=== PATIENT | female | born 1990 | race Asian ===

== ENCOUNTER 2021-01-17 23:07 | Outpatient (CLI) | payer MEDICAID | END 2021-01-17 23:08 | disposition critical access hospital (66) | LOC: EMS 23:07 | DX: R11.2 Nausea with vomiting, unspecified (principal) | CPT/HCPCS: A0425; A0427 ==

== ENCOUNTER 2021-01-17 23:18 | Emergency (ER) | payer MEDICAID ==
[2021-01-17] MEDS ORDERED: PIPERACILLIN/TAZOBACTAM 4.5 GM in SODIUM CHLORIDE 0.9% MINIBAG 100 ML IV STA (23:22)
[2021-01-17] MEDS ORDERED: SODIUM CHLORIDE 0.9% 500 ML IV STA (23:23)
[2021-01-17] MEDS ORDERED: ONDANSETRON 4 MG/2 ML VIAL IVP STA (23:23)
[2021-01-17] MEDS ORDERED: ACETAMINOPHEN 650 MG SUPP PR STA (23:23)
--- NOTE | 2021-01-17 23:26 | ED Physician Documentation ---
History of Present Illness - Stated complaint Stated Complaint: FEVER, BODY ACHES, VOMITING - History obtained from History obtained from: Patient - Additonal information Additional information: 30yF with pmh fentanyl abuse currently in rehab since wednesday p/w nbnb n/v X 2 days since starting suboxone therapy. COWS 12, 13, 16, 15 today. also with elevated forehead temp tmax 100.8 today. denies diarrhea, abd pain, urinary sx. Review of Systems Ten Systems: 10 systems reviewed and negative Constitutional: reports: Chills, Myalgias, Fatigue GI: reports: Nausea, Vomiting. denies: Abdominal Pain, Diarrhea : denies: Dysuria PD PAST MEDICAL HISTORY - Present Medications Home Medications: Ambulatory Orders Medication Instructions Recorded Confirmed Buprenorphine HCl/Naloxone HCl 1 film PO BID 01/17/21 01/17/21 [Buprenorphine-Nalox 8-2Mg Film] Promethazine [Phenergan] 12.5 mg PO TID 01/17/21 01/17/21 cloNIDine [Catapres] 0.1 mg PO DAILY 01/17/21 01/17/21 hydrOXYzine HCL [Hydroxyzine HCl] 50 mg PO DAILY 01/17/21 01/17/21 methocarbamoL [Methocarbamol] 750 mg PO DAILY 01/17/21 01/17/21 traZODone [Desyrel] 50 mg PO DAILY 01/17/21 01/17/21 - Allergies Allergies/Adverse Reactions: Allergies Allergy/AdvReac Type Severity Reaction Status Date / Time No Known Drug Allergies Allergy Verified 01/17/21 23:22 PD ED PE NORMAL - Vitals Vital signs reviewed: Yes - General General: Alert and oriented X 3, No acute distress, Well developed/nourished, Other (uncomfortable appearing) - HEENT HEENT: Atraumatic, PERRL (pupils dilated, reactive to light), EOMI, Moist mucous membranes, Pharynx benign - Neck Neck: Supple, no meningeal sign - Cardiac Cardiac: RRR - Respiratory Respiratory: No respiratory distress, Clear bilaterally - Abdomen Abdomen: Non tender, Non distended - Derm Derm: Normal color, Warm and dry - Extremities Extremities: No deformity - Neuro Neuro: Alert and oriented X 3 - Psych Psych: Normal mood, Normal affect Results - Vitals Vitals: Vital Signs - 24 hr 01/17/21 01/17/21 01/18/21 23:22 23:25 00:37 Temperature 37.7 C 37.7 C 37.3 C Heart Rate 97 97 76 Respiratory 18 18 16 Rate Blood Pressure 134/99 H 134/99 H 137/80 H O2 Saturation 97 98 99 Oxygen O2 Source Room air - Labs Labs: Laboratory Tests 01/17/21 01/17/21 01/18/21 23:57 23:57 00:28 WBC 15.1 H RBC 5.88 H Hgb 14.0 Hct 44.5 MCV 75.7 L MCH 23.8 L MCHC 31.5 L RDW 18.9 H Plt Count 430 MPV 9.0 Neut # (Auto) 11.9 H Lymph # (Auto) 1.6 [place] # (Auto) 1.5 H Eos # (Auto) 0.0 Baso # (Auto) 0.1 Absolute Nucleated RBC 0.00 Nucleated RBC % 0.0 Sodium 145 Potassium 3.1 L Chloride 102 Carbon Dioxide 26 Anion Gap 17.0 H BUN 22 H Creatinine 0.7 Estimated GFR (MDRD) 97 Glucose 129 H Calcium 9.2 Total Bilirubin 1.0 AST 16 ALT 20 Alkaline Phosphatase 50 Total Protein 8.6 H Albumin 4.9 Globulin 3.7 Albumin/Globulin Ratio 1.3 Lipase 38 Urine Color DARK YELLOW Urine Clarity CLEAR Urine pH 5.5 Ur Specific [place] >=1.030 H Urine Protein 100 H Urine Glucose (UA) NEGATIVE Urine Ketones 40 H Urine Occult Blood TRACE-INTA Urine Nitrite NEGATIVE Urine Bilirubin NEGATIVE Urine Urobilinogen 0.2 (NORMAL) Ur Leukocyte Esterase NEGATIVE Urine RBC 0-5 Urine WBC 0-3 Ur Squamous Epith Cells MANY Squamous H Urine Bacteria Few Urine Mucus Marked Strands Urine Culture Comments NOT INDICATED PD MEDICAL DECISION MAKING - ED course ED course: 30-year-old woman presented with symptoms concerning for withdrawal. Less likely infectious etiology given patient is not having diarrhea, had no fever here, and symptoms coincide with withdrawal from fentanyl. symptoms controlled in the emergency department and she is feeling better. Plan to dc back to rehab with strict return precautions. Departure - Departure Disposition: 01 Home, Self Care Clinical Impression: Nausea and vomiting, Tremors of nervous system Condition: Good Instructions: Diet Clear Liquid Dc Comments: You are seen in the emergency department for nausea and vomiting. This is most likely related to withdrawal. Please return to the emergency department if you have diarrhea, abdominal pain, fever >100.4 by oral, rectal or axillary thermometer, new or worsening symptoms that are not consistent with withdrawal. Hope you feel better!
[2021-01-17] MEDS ORDERED: BUPRENORPHINE 0.3 MG/ML VIAL IVP ONE (23:30)
[2021-01-17] MEDS ORDERED: SODIUM CHLORIDE 0.9% 1,000 ML IV STA (23:43)
[2021-01-17] MEDS ORDERED: METOCLOPRAMIDE 10 MG/2 ML VIAL IVP STA (23:43)
[2021-01-18 00:03] LABS: BASOPHILS # (AUTO) 0.1 10^3/uL (0.0-0.1); BASOPHILS % (AUTO) 0.6 %; EOSINOPHILS % (AUTO) 0.1 %; HCT - HEMATOCRIT 44.5 % (37.0-47.0); LYMPHOCYTES # (AUTO) 1.6 10^3/uL (1.5-3.5); LYMPHOCYTES % (AUTO) 10.7 %; MEAN CORPUSCULAR HEMOGLOBIN 23.8 pg (27.0-31.0); MEAN CORPUSCULAR HGB CONC 31.5 g/dL (32.0-36.0); MEAN CORPUSCULAR VOLUME 75.7 fL (81.0-99.0); MONOCYTES # (AUTO) 1.5 10^3/uL (0.0-1.0); MONOCYTES % (AUTO) 9.9 %; NEUTROPHILS # (AUTO) 11.9 10^3/uL (1.5-6.6); NEUTROPHILS % (AUTO) 78.5 %; PLT - PLATELET COUNT 430 10^3/uL (130-450); RED BLOOD COUNT 5.88 10^6/uL (4.20-5.40); RED CELL DISTRIBUTION WIDTH 18.9 % (12.0-15.0); WHITE BLOOD COUNT 15.1 x10^3/uL (4.8-10.8)
[2021-01-18 00:15] LABS: ALBUMIN 4.9 g/dL (3.2-5.5); ALBUMIN/GLOBULIN RATIO 1.3 (1.0-2.2); CALCIUM 9.2 mg/dL (8.5-10.3); CREATININE 0.7 mg/dL (0.4-1.0); POTASSIUM 3.1 mmol/L (3.5-5.0); TOTAL PROTEIN 8.6 g/dL (6.7-8.2)
[2021-01-18 00:33] LABS: GLUCOSE, URINE (UA) NEGATIVE (NEGATIVE); KETONES,URINE (UA) 40 mg/dL (NEGATIVE); LEUKOCYTE ESTERASE, URINE NEGATIVE (NEGATIVE); NITRITE,URINE NEGATIVE (NEGATIVE); OCCULT BLOOD,URINE TRACE-INTA (NEGATIVE); PH,URINE 5.5 PH (5.0-7.5); PROTEIN,URINE 100 mg/dL (NEGATIVE); UROBILINOGEN,URINE 0.2 (NORMAL) E.U./dL (NORMAL)
[2021-01-18 00:36] LABS: BILIRUBIN,URINE NEGATIVE (NEGATIVE); CLARITY,URINE CLEAR (CLEAR); ICTOTEST,URINE NEGATIVE
[2021-01-18 00:38] LABS: BACTERIA,URINE Few /HPF (None Seen); RBC,URINE 0-5 /HPF (0-5); SQUAMOUS EPITHELIAL CELL,UR MANY Squamous (<= Few); WBC,URINE 0-3 /HPF (0-5)
[2021-01-18 00:39] LABS: MUCUS,URINE Marked Strands
[2021-01-18] MEDS ORDERED: ONDANSETRON ODT 4 MG TABLET TL STA (01:20)
[2021-01-18 02:24] VITALS: BP 132/79
== END 2021-01-18 03:00 | disposition home or self-care (01) ==
LOC: ED 23:18
DX: F11.13 Opioid abuse with withdrawal (principal); R11.2 Nausea with vomiting, unspecified; R25.1 Tremor, unspecified
CPT/HCPCS: 36415; 80053; 81001; 83690; 85025; 96374; 96375; 99284; J0592; J2765; Q0162; 82803; 83605; 87040; 87086